=== PATIENT | male | born 1970 | race Native Hawaiian/Other Pacific Islander ===

== ENCOUNTER → 2020-08-14 | Outpatient (CLI) | payer OTHER ==
--- NOTE | 2020-08-14 15:13 | XR ---
EXAMINATION TYPE: XR knee complete LT DATE OF EXAM: 08/14/2020 COMPARISON: NONE HISTORY: 49-year-old male S83.92 XA, knee injury and pain. 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 Chronic appearing bone fragments along the margin of the tibial tray component. Moderate underlying joint effusion is suggested. No underlyi ng acute fracture, subluxation, dislocation identified. 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 There is a moderate joint effusion which is nonspec ific, possibly reactive to the patient's injury. No periprosthetic fracture seen.
== END | disposition home or self-care (01) ==
LOC: RAD 14:35
PROVIDERS: ATTEND Emergency Medicine
DX: M25.462 Effusion, left knee (principal); Z96.652 Presence of left artificial knee joint

== ENCOUNTER → 2025-01-24 | Outpatient (CLI) | payer OTHER ==
--- NOTE | 2025-01-24 13:16 | US ---
EXAMINATION TYPE: US scrotum with doppler. DATE OF EXAM: 01/24/2025 COMPARISON: NONE CLINICAL INDICATION: Male, 54 years old with history of N50.811 RIGHT TESTICULAR PAIN N50.812 LEFT TE STICU; bilateral groin/testicle pain since moving heavy object 3 days ago, no swelling, h/o hernia re pair many years ago TECHNIQUE: Grayscale, color Doppler and spectral Doppler imaging of the scrotum. FINDINGS: EXAM MEASUREMENTS: TESTICLES: Right Testicle: 4.1 x 3.4 x 2.7 cm - multiple cystic areas noted Left Testicle: 4.3 x 3.2 x 2.3 cm - multiple cystic areas noted EPIDIDYMIS HEAD: Right Epididymis: 1.4 cm - complex cyst = 0.9 x 1.3 x 0.6 Left Epididymis: 0.8 cm Doppler performed to assess for testicular vascularity; good bilateral color flow and spectral wavefo suresh are seen. Presence of hydroceles: inferior bilateral small hydroceles with internal mobile debris Presence of varicoceles: mild on the left possible increased vascularity bilateral, orchitis IMPRESSION: Incidental thin-walled cystic change in the bilateral testicles. There is symmetric blood flow to both testicles. There is thought more prominent during real-time scanning per The ct technologist. Bilateral acute orchitis though rare is not entirely excluded. [facility], , 01/24/2025 1:14 PM
== END | disposition home or self-care (01) ==
LOC: RADUSWWP 12:05
PROVIDERS: ATTEND Emergency Medicine
DX: N45.2 Orchitis (principal)
CPT/HCPCS: 76870; 93975

== ENCOUNTER 2025-01-31 13:36 | Emergency (ER) | payer OTHER ==
[2025-01-31 13:58] VITALS: PULSE 65
[2025-01-31 14:17] LABS: Basophils % (A) 1 %; Eosinophils # (A) 0.2 k/uL (0-0.7); Eosinophils % (A) 4 %; HCT 42.6 % (39.0-53.0); HGB 13.2 gm/dL (13.0-17.5); Lymphocytes # (A) 2.2 k/uL (1.0-4.8); Lymphocytes % (A) 32 %; MCHC 31.1 g/dL (31.0-37.0); MCV 90.1 fL (80.0-100.0); Mean Platelet Volume 7.8; Monocytes # (A) 0.5 k/uL (0-1.0); Monocytes % (A) 7 %; Neutrophils # (A) 3.8 k/uL (1.3-7.7); Neutrophils % (A) 55 %; Platelet Count 253 k/uL (150-450); RBC 4.72 m/uL (4.30-5.90); RDW 12.8 % (11.5-15.5)
[2025-01-31 14:28] LABS: ALT 22 U/L (4-49); AST 20 U/L (17-59); African American GFR (CKD) >90 (>60 ml/min/1.73 sqM); Albumin 4.2 g/dL (3.5-5.0); Alkaline Phosphatase 64 U/L (38-126); Anion Gap 6 mmol/L; Blood Urea Nitrogen 16 mg/dL (9-20); Calcium 10.3 mg/dL (8.4-10.2); Carbon Dioxide 31 mmol/L (22-30); Chloride 101 mmol/L (98-107); Non-African American GFR(CKD) >90 (>60 ml/min/1.73 sqM); Potassium 4.5 mmol/L (3.5-5.1); Sodium 138 mmol/L (137-145); Total Bilirubin 0.6 mg/dL (0.2-1.3); Total Protein 7.5 g/dL (6.3-8.2)
[2025-01-31 14:36] LABS: Glucose 45 mg/dL (74-99)
--- NOTE | 2025-01-31 14:40 | XR ---
EXAMINATION TYPE: XR KUB DATE OF EXAM: 01/31/2025 2:35 PM COMPARISON: None CLINICAL INDICATION: Male, 54 years old with history of abdominal pain; TECHNIQUE: One radiographic view of the abdomen was obtained. FINDINGS: The bowel gas pattern is nonspecific without dilated loops of small or large bowel. . Fecal material and gas are demonstrated throughout the colon and rectum. There is no evidence for organome edgard or pneumoperitoneum. Degeneration changes of the spine. No acute osseous process. Left renal c alculi measuring up to 8mm. IMPRESSION: 1. Left renal calculus. 2. Nonspecific bowel gas pattern without radiographic evidence for acute process. [facility], , 01/31/2025 2:38 PM
[2025-01-31 14:47] LABS: Appearance,Urine Clear (Clear); Bilirubin,Urine Negative (Negative); Blood,Urine Negative (Negative); Color,Urine Light Yellow; Glucose,Urine (UA) 4+ (Negative); Ketones,Urine Negative (Negative); Leukocyte Esterase,Urine Negative (Negative); Nitrite,Urine Negative (Negative); Protein,Urine Negative (Negative); Specific Gravity,Urine 1.033 (1.001-1.035); Urobilinogen,Urine <2.0 mg/dL (<2.0)
[2025-01-31 16:38] LABS: Glucose,Whole Blood 86 mg/dL (70-110)
[2025-01-31 16:41] VITALS: BP 137/89; RESP 18; TEMP 98.4
--- NOTE | 2025-01-31 16:44 | ED ---
General Adult HPI - General Chief complaint: Abdominal Pain Stated complaint: [facility] referral- Time Seen by Provider: 01/31/25 14:00 Source: patient, RN notes reviewed, old records reviewed Mode of arrival: ambulatory Limitations: no limitations - History of Present Illness Initial comments: Patient is a 54-year-old male who presents emergency department complaining of right lower quadrant abdominal pain. Has been present for a few weeks, since January 20. States it is worse with certain movements and describes it as an achy sensation. Denies any nausea or vomiting. Denies any diarrhea or constipation. Does have a history of prior hernia repair. Denies any testicular pain or urinary complaints. Denies any other acute complaints at this time. Was sent by [facility] for further evaluation. Outpatient ultrasound was obtained which cannot definitively rule bilateral orchitis however patient has no testicular pain. This all isolated to the right lower quadrant. Urinalysis also done outpatient earlier was unremarkable. Workup started in triage. I evaluated the patient when he was placed in a hallway bed. His chest pain, shortness of breath, fevers, chills, urinary complaints. He has no acute complaints at this time. - Related Data Previous Rx's Medication Instructions Recorded Ibuprofen [Motrin] 800 mg PO Q8HR PRN #30 tab 11/13/14 HYDROcodone/APAP 5-325MG [Gerry 5] 1 each PO Q4HR PRN #20 tab 09/15/15 Naproxen [Naprosyn] 500 mg PO Q12HR #24 tab 09/15/15 Levofloxacin [Levaquin] 500 mg PO DAILY 10 Days #10 tab 01/31/25 Allergies Allergy/AdvReac Type Severity Reaction Status Date / Time No Known Allergies Allergy Verified 09/15/15 20:10 Review of Systems ROS Statement: Those systems with pertinent positive or pertinent negative responses have been documented in the HPI. Review of Systems: CONST: Denies fever EYES: Denies blurry vision ENT: Denies nasal congestion C/V: Denies Chest pain RESP: Denies shortness of breath GI: Endorses right lower quadrant abdominal pain : Denies dysuria SKIN: Denies rash. MSK: Denies joint pain. NEURO: Denies headache ROS Other: All systems not noted in ROS Statement are negative. Past Medical History Past Medical History: Diabetes Mellitus Additional Past Medical History / Comment(s): knee pain History of Any Multi-Drug Resistant Organisms: None Reported Past Surgical History: Joint Replacement, Orthopedic Surgery Past Psychological History: No Psychological Hx Reported Past Alcohol Use History: Occasional Past Drug Use History: None Reported General Exam - General Exam Comments Initial Comments: General: Appears in no acute distress. HEAD: Normal with no signs of head trauma. EYES: PERRLA, EOMI, conjunctiva normal, no discharge. ENT: Hearing grossly intact, normal oropharynx. RESPIRATORY: Clear breath sounds bilaterally. No wheezes, rales, or rhonchi. C/V: Regular rate and rhythm. S1 and S2 auscultated, no edema, peripheral pulses 2+ and intact throughout ABD: Abdomen soft, nontender, nondistended. No palpable mass located in the right lower quadrant. Unremarkable exam at this time. No guarding or rebound tenderness. No peritoneal signs. EXT: Normal range of motion, no obvious deformity SKIN: No rashes or lesions observed on exposed skin. NEURO: Alert and oriented x 4. Limitations: no limitations Course Vital Signs 01/31/25 01/31/25 13:53 16:40 Temperature 97.9 F 98.4 F Pulse Rate 65 65 Respiratory 16 18 Rate Blood Pressure 145/84 137/89 O2 Sat by Pulse 99 100 Oximetry Medical Decision Making - Medical Decision Making Was pt. sent in by a medical professional or institution (, PA, AIR HAMMER OPERATOR, urgent care, hospital, or intermediate...) When possible be specific @ -No Did you speak to anyone other than the patient for history (EMS, parent, family, police, friend...)? What history was obtained from this source @ -No Did you review nursing and triage notes (agree or disagree)? Why? @ -I reviewed and agree with nursing and triage notes Were old charts reviewed (outside hosp., previous admission, EMS record, old EKG, old radiological studies, urgent care reports/EKG's, intermediate records)? Report findings @ -Reviewed outpatient ultrasound Differential Diagnosis (chest pain, altered mental status, abdominal pain women, abdominal pain men, vaginal bleeding, weakness, fever, dyspnea, syncope, headache, dizziness, GI bleed, back pain, seizure, CVA, palpatations, mental health, musculoskeletal)? @ -Differential Abdominal Pain Men: Appendicitis, cholecystitis, diverticulosis, ischemic bowel, pancreatitis, hepatitis, UTI, gastroenteritis, AAA, incarcerated hernia, bowel obstruction, constipation, inflammatory bowel, hepatitis, peptic ulcer disease, splenic infarction, perforated viscus, testicular torsion, this is not meant to be an all-inclusive list EKG interpreted by me (3pts min.). @ -As above X-rays interpreted by me (1pt min.). @ -None done CT interpreted by me (1pt min.). @ -CT abdomen pelvis reveals no obvious acute intra-abdominal process. Patient does have an incidental finding of a left adrenal gland nodule. Also findings concerning for chronic pancreatitis. Clinically has no symptoms of chronic pancreatitis. U/S interpreted by me (1pt. min.). @ -None done What testing was considered but not performed or refused? (CT, X-rays, U/S, labs)? Why? @ -None What meds were considered but not given or refused? Why? @ -None Did you discuss the management of the patient with other professionals (professionals i.e. , PA, AIR HAMMER OPERATOR, lab, RT, psych nurse, social studies department chair, associate professor of theology, teacher, property portfolio officer, home health care case manager)? Give summary @ -No Was smoking cessation discussed for >3mins.? @ -No Was critical care preformed (if so, how long)? @ -No Were there social determinants of health that impacted care today? How? (Homelessness, low income, unemployed, alcoholism, drug addiction, transportation, low edu. Level, literacy, decrease access to med. care, fci, rehab)? @ -No Was there de-escalation of care discussed even if they declined (Discuss DNR or withdrawal of care, Hospice)? DNR status @ -No What co-morbidities impacted this encounter? (DM, HTN, Smoking, COPD, CAD, Cancer, CVA, ARF, Chemo, Hep., AIDS, mental health diagnosis, sleep apnea, morbid obesity)? @ -None Was patient admitted / discharged? Hospital course, mention meds given and route, prescriptions, significant lab abnormalities, going to OR and other pertinent info. @ -Workup started in triage. Presents for abdominal pain. It has been ongoing on and off for few weeks. Sent by S for CT. Outpatient ultrasound and urinalysis unremarkable. Possible orchitis but patient does not have symptoms consistent with that as he only has right lower quadrant abdominal pain and no testicular pain. Labs obtained in triage remarkable for a low sugar of 45 however Accu-Chek upon arrival to [facility] bed was 86. Remainder the labs unremarkable. We will obtain CT abdomen pelvis. He declines any analgesia medications. He was in agreement this plan. Vitals are within acceptable limits. CT returned remarkable for no obvious acute intra-abdominal process however patient does have a left adrenal gland nodule which she was made aware of and instructed to obtain repeat imaging in the next 6 to 12 months which he expressed understanding. Discussed findings of chronic pancreatitis and states that he had episodes of pancreatitis many years ago but no current symptoms. We discussed his workup. Due to the concern for orchitis on the ultrasound, we will treat with Levaquin. He was in agreement this plan. Strict return precautions discussed. I will provide the patient with a prescription for Levaquin. I instructed the patient to follow up with their PCP in the next 1-3 days.. I explained that the patient should return to the emergency department if they experience any worsening symptoms. Strict return precautions were discussed with the patient. The patient expressed understanding of these instructions. I answered all questions that the patient had. The patient was discharged home in good condition with their prescriptions and follow up information. Undiagnosed new problem with uncertain prognosis? @ -No Drug Therapy requiring intensive monitoring for toxicity (Heparin, Nitro, Insulin, Cardizem)? @ -No Were any procedures done? @ -No Diagnosis/symptom? @ -Abdominal pain of unknown etiology, orchitis, adrenal nodule Acute, or Chronic, or Acute on Chronic? @ -Acute Uncomplicated (without systemic symptoms) or Complicated (systemic symptoms)? @ -Uncomplicated Side effects of treatment? @ -None Exacerbation, Progression, or Severe Exacerbation] @ -No Poses a threat to life or bodily function? @ -Unlikely at this time - Lab Data Result diagrams: 01/31/25 14:06 01/31/25 14:06 Lab Results 01/31/25 01/31/25 01/31/25 Range/Units 14:06 14:06 14:11 WBC 7.0 (3.8-10.6) k/uL RBC 4.72 (4.30-5.90) m/uL Hgb 13.2 (13.0-17.5) gm/dL Hct 42.6 (39.0-53.0) % MCV 90.1 (80.0-100.0) fL MCH 28.0 (25.0-35.0) pg MCHC 31.1 (31.0-37.0) g/dL RDW 12.8 (11.5-15.5) % Plt Count 253 (150-450) k/uL MPV 7.8 Neutrophils % 55 % Lymphocytes % 32 % Monocytes % 7 % Eosinophils % 4 % Basophils % 1 % Neutrophils # 3.8 (1.3-7.7) k/uL Lymphocytes # 2.2 (1.0-4.8) k/uL Monocytes # 0.5 (0-1.0) k/uL Eosinophils # 0.2 (0-0.7) k/uL Basophils # 0.0 (0-0.2) k/uL Sodium 138 (137-145) mmol/L Potassium 4.5 (3.5-5.1) mmol/L Chloride 101 (98-107) mmol/L Carbon Dioxide 31 H (22-30) mmol/L Anion Gap 6 mmol/L BUN 16 (9-20) mg/dL Creatinine 0.69 (0.66-1.25) mg/dL Est GFR (CKD-EPI)AfAm >90 (>60 ml/min/1.73 sqM) Est GFR (CKD-EPI)NonAf >90 (>60 ml/min/1.73 sqM) Glucose 45 L* (74-99) mg/dL POC Glucose (mg/dL) (70-110) mg/dL POC Glu Liquid Center Assembler ID Calcium 10.3 H (8.4-10.2) mg/dL Total Bilirubin 0.6 (0.2-1.3) mg/dL AST 20 (17-59) U/L ALT 22 (4-49) U/L Alkaline Phosphatase 64 (38-126) U/L Total Protein 7.5 (6.3-8.2) g/dL Albumin 4.2 (3.5-5.0) g/dL Urine Color Light Yellow Urine Appearance Clear (Clear) Urine pH 6.0 (5.0-8.0) Ur Specific [place] 1.033 (1.001-1.035) Urine Protein Negative (Negative) Urine Glucose (UA) 4+ H (Negative) Urine Ketones Negative (Negative) Urine Blood Negative (Negative) Urine Nitrite Negative (Negative) Urine Bilirubin Negative (Negative) Urine Urobilinogen <2.0 (<2.0) mg/dL Ur Leukocyte Esterase Negative (Negative) 01/31/25 Range/Units 16:36 WBC (3.8-10.6) k/uL RBC (4.30-5.90) m/uL Hgb (13.0-17.5) gm/dL Hct (39.0-53.0) % MCV (80.0-100.0) fL MCH (25.0-35.0) pg MCHC (31.0-37.0) g/dL RDW (11.5-15.5) % Plt Count (150-450) k/uL MPV Neutrophils % % Lymphocytes % % Monocytes % % Eosinophils % % Basophils % % Neutrophils # (1.3-7.7) k/uL Lymphocytes # (1.0-4.8) k/uL Monocytes # (0-1.0) k/uL Eosinophils # (0-0.7) k/uL Basophils # (0-0.2) k/uL Sodium (137-145) mmol/L Potassium (3.5-5.1) mmol/L Chloride (98-107) mmol/L Carbon Dioxide (22-30) mmol/L Anion Gap mmol/L BUN (9-20) mg/dL Creatinine (0.66-1.25) mg/dL Est GFR (CKD-EPI)AfAm (>60 ml/min/1.73 sqM) Est GFR (CKD-EPI)NonAf (>60 ml/min/1.73 sqM) Glucose (74-99) mg/dL POC Glucose (mg/dL) 86 (70-110) mg/dL POC Glu Liquid Center Assembler ID [place] Calcium (8.4-10.2) mg/dL Total Bilirubin (0.2-1.3) mg/dL AST (17-59) U/L ALT (4-49) U/L Alkaline Phosphatase (38-126) U/L Total Protein (6.3-8.2) g/dL Albumin (3.5-5.0) g/dL Urine Color Urine Appearance (Clear) Urine pH (5.0-8.0) Ur Specific [place] (1.001-1.035) Urine Protein (Negative) Urine Glucose (UA) (Negative) Urine Ketones (Negative) Urine Blood (Negative) Urine Nitrite (Negative) Urine Bilirubin (Negative) Urine Urobilinogen (<2.0) mg/dL Ur Leukocyte Esterase (Negative) Disposition Clinical Impression: Orchitis, Abdominal pain of unknown etiology, Adrenal nodule Disposition: HOME SELF-CARE Condition: Good Instructions (If sedation given, give patient instructions): Abdominal Pain (ED), Orchitis (ED) Additional Instructions: CT abdomen pelvis shows findings consistent with chronic pancreatitis as well as a slightly enlarged left adrenal nodule. Recommend follow-up adrenal CT in 1 year. Remainder the workup unremarkable today. Follow-up with your PCP. Due to your diagnosis of orchitis on ultrasound, we will treat with antibiotic to see if this improves her symptoms. Return if any concerns. Complete entire course of antibiotic. Prescriptions: Levofloxacin [Levaquin] 500 mg PO DAILY 10 Days #10 tab Is patient prescribed a controlled substance at d/c from ED?: No Referrals: None,Stated [Primary Care Provider] - 1-2 days Forms: Area PCPs Time of Disposition: 17:12
--- NOTE | 2025-01-31 16:53 | CT ---
EXAMINATION TYPE: CT abdomen pelvis w con CT DLP: 1071.3 mGycm, Automated exposure control for dose reduction was used. DATE OF EXAM: 01/31/2025 4:41 PM COMPARISON: KUB radiograph 01/31/2025 CLINICAL INDICATION:Male, 54 years old with history of rlq abd pain; rlq abd pain x 1 week after inju ry TECHNIQUE: Standard CT of the abdomen and pelvis following the administration of 100 cc of Isovue 3 00 IV contrast material. Coronal and sagittal reformats were performed. FINDINGS: LOWER CHEST: Unremarkable ABDOMEN LIVER: Unremarkable GALLBLADDER AND BILE DUCTS: Unremarkable. PANCREAS: Atrophic appearance to the pancreas with multiple coarse parenchymal calcifications. Somewh at beaded tortuous appearance of the pancreatic duct. No surrounding inflammatory changes or fluid co llections. SPLEEN: Unremarkable. ADRENAL GLANDS: Right adrenal gland is unremarkable. Left adrenal gland 1.4 cm nodule. KIDNEYS AND URETERS: No evidence of hydronephrosis or renal calculus. The kidneys enhance symmetrical ly. Contrast is demonstrated within both collecting systems and proximal ureters on the delayed phase . Subcentimeter right renal hypodensity likely representing a cyst. PELVIS BLADDER: Unremarkable REPRODUCTIVE: Coarse calcifications of the prostate gland are identified. ABDOMEN & PELVIS STOMACH AND BOWEL: Stomach and duodenum are unremarkable. No focal bowel wall thickening or surroundi ng inflammatory changes. The appendix is within normal limits. No evidence of bowel obstruction. PERITONEUM: No evidence of pneumoperitoneum or free fluid. VASCULATURE: No evidence of aortic aneurysm. Couple of left-sided pelvic phleboliths. MUSCULOSKELETAL: No acute osseous abnormalities. Multilevel degenerative disc disease. Minimal grade 1 anterolisthesis of L5 on S1 with bilateral pars defects. LYMPH NODES: No gross evidence for lymphadenopathy. SOFT TISSUE/ABDOMINAL WALL: Superficial bilateral lower anterior abdomen wall subcutaneous stranding changes. IMPRESSION: 1. No acute abdominal/pelvic process. 2. Findings consistent with chronic pancreatitis. Calcifications on recent KUB correspond to the panc reas. 3. Left adrenal gland indeterminate 1.4 cm nodule. Probably benign. Consider follow-up adrenal CT in 12 months. [facility], , 01/31/2025 4:50 PM
[2025-01-31] MEDS: LEVOFLOXACIN 500 MG TAB PO STA (17:33)
== END 2025-01-31 17:37 | disposition home or self-care (01) ==
LOC: EC 13:36
DX: N45.2 Orchitis (principal); R93.89 Abnormal findings on diagnostic imaging of other specified body structures; R10.31 Right lower quadrant pain
CPT/HCPCS: 36415; 80053; 85025; 81003; 74018; 74177; 99284; Q9967